=== PATIENT | male | born 1940 | race Caucasian/White ===

== ENCOUNTER → 2020-06-26 | Outpatient (CLI) | payer MEDICARE, BC ==
--- NOTE | 2020-06-26 10:22 | XR ---
"EXAMINATION TYPE: XR chest 2V DATE OF EXAM: 06/26/2020 COMPARISON: CXR from 10/25/2015. HISTORY: Shortness of breath. TECHNIQUE: Frontal and lateral views of the chest are obtained. FINDINGS: There is no focal air space opacity, pleural effusion, or pneumothorax seen. The cardiac silhouette size remains within normal limits. New dual-lead pacemaker. Atherosclerotic thoracic aorta redemonstrated. New 1.9 cm lung nodule projects over the posterior ninth rib warrants follow-up. Pos sible more anterior position on lateral view of the left well-seen. The osseous structures are intact . IMPRESSION: No new acute pulmonary process. New left basilar lung nodule suspected. Follow-up contra st enhanced chest is advised. A Yellow level critical message alert has been initiated for Misha Benjamin MD via the [employer] | Critical Results System on 06/26/2020 10:19 AM. This message alert has been sent to Misha thurston MD via the preferences provided by the clinician for the receipt of Radiology Critical Findings. Message ID [id number]."
--- NOTE | 2020-06-26 10:40 | US ---
"EXAMINATION TYPE: US abdomen complete DATE OF EXAM: 06/26/2020 COMPARISON: NONE CLINICAL HISTORY: R16 R10.13. Pt states loss of appetite, weight loss EXAM MEASUREMENTS: Liver Length: 22.2 cm Gallbladder Wall: 0.2 cm CBD: 0.4 cm Spleen: 12.1 cm Right Kidney: 10.9 x 4.6 x 4.6 cm Left Kidney: 10.5 x 6.3 x 5.8 cm Pancreas: wnl, tail obscured by overlying bowel gas Liver: Enlarged, marked heterogeneity, possible underlying masses. Gallbladder: wnl Evidence for sonographic Dash's sign: No CBD: wnl Spleen: wnl Right Kidney: Cyst medial= 2.4 x 1.6 x 2.4 cm Left Kidney: wnl Upper IVC: wnl Abd Aorta: No evidence of AAA, wall atherosclerosis The visualized liver is enlarged with overall marked heterogeneity. Evaluation for focal masses subop timal due to the heterogeneity. The intrahepatic portion of the IVC and proximal abdominal aorta are within normal limits. There is no evidence of cholelithiasis. Common bile duct is unremarkable. Th e visualized portions of the pancreas are homogenous. The spleen is unremarkable. Kidneys are symme tric and free of hydronephrosis. No renal lesions are seen on images a. IMPRESSION: Hepatomegaly with marked heterogeneity, underlying small masses or metastatic lesions can not be excluded. Follow-up contrast enhanced CT study advised. A Yellow level critical message alert has been initiated for Misha Benjamin MD via the [employer] | Critical Results System on 06/26/2020 10:38 AM. This message alert has been sent to Misha thurston MD via the preferences provided by the clinician for the receipt of Radiology Critical Findings. Message ID [id number]."
== END | disposition home or self-care (01) ==
LOC: RADUSWWP 09:34
PROVIDERS: ATTEND Family Medicine
DX: R10.13 Epigastric pain (principal); R16.0 Hepatomegaly, not elsewhere classified; R06.02 Shortness of breath
CPT/HCPCS: 71046; 76700

== ENCOUNTER → 2020-07-10 | Outpatient (CLI) | payer MEDICARE, BC ==
[2020-07-10 11:32] LABS: African American GFR (CKD) >90 (>60 ml/min/1.73 sqM); Blood Urea Nitrogen 10 mg/dL (9-20); Non-African American GFR(CKD) >90 (>60 ml/min/1.73 sqM)
--- NOTE | 2020-07-10 14:14 | CT ---
EXAMINATION TYPE: CT ChestAbdPelvis w con DATE OF EXAM: 07/10/2020 COMPARISON: None HISTORY: Pulmonary nodule, Hepatomegaly CT DLP: 680.10 mGycm CONTRAST: CT scan of the chest, abdomen and pelvis is performed with Oral Contrast and with IV Contrast, patien t injected with 100 ml mL of Isovue 300. CT Chest: LUNGS: Noted are 15-16 pulmonary nodules identified within each lung field. The largest pulmonary nod ule is seen within the left lower lobe measuring 1.3 cm on the left. The largest right-sided pulmonar y nodule is identified within the right lower lobe and measures 1 cm. There is mild right basilar ple ural thickening. MEDIASTINUM: Thoracic aorta is of normal caliber. The heart is not enlarged. No evidence for media stinal mass or adenopathy. There is evidence of a hiatal hernia. HILAR STRUCTURES: No evidence for mass. No hilar adenopathy is appreciated. OTHER: No significant abnormality. CONTRAST CT ABDOMEN AND PELVIS FINDINGS: LIVER/GB: No calcified gallstones. Innumerable hepatic lesions are seen involving all segments of t he liver. The largest lesion is noted within the medial segment left hepatic lobe and measures approx imately 2.2 cm. There is evidence of hepatomegaly. Biliary tree is of normal caliber. PANCREAS: No inflammation. No distinct mass. SPLEEN: No splenic enlargement. No lesion seen. ADRENALS: No nodule. No thickening. KIDNEYS/BLADDER: No hydronephrosis. No nephrolithiasis. Simple cyst is noted of the right kidney me asuring 2.2 cm. BOWEL: Nodular wall thickening involving the sigmoid colon measuring 1.8 cm. Lesion is difficult to e xclude. Consider direct visualization. Remainder of the small and large bowel are of normal caliber. No evidence for free air or abscess. No inflammatory process. Small amount of free fluid within the p christopher. GENITAL ORGANS: No gross abnormality. LYMPH NODES: No greater than 1cm abdominal or pelvic lymph nodes are appreciated. AORTA: No significant abnormality. OSSEOUS STRUCTURES: Multilevel degenerative changes noted. OTHER: No significant additional abnormality is seen. IMPRESSION: 1. 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 Site of etiology is indetermin ate although there may be a lesion within the sigmoid colon. Consider direct visualization.
== END | disposition home or self-care (01) ==
LOC: RADCTMAIN 10:42
PROVIDERS: ATTEND Family Medicine
DX: R91.1 Solitary pulmonary nodule (principal); R16.0 Hepatomegaly, not elsewhere classified
CPT/HCPCS: 82565; 84520; 71260; 74177; 36415; Q9967

== ENCOUNTER 2020-08-04 08:46 | Day surgery (SDC) | payer MEDICARE, BC ==
[2020-08-04 09:30] VITALS: RESP 16
[2020-08-04 09:31] LABS: Mean Platelet Volume 8.9; Platelet Count 440 k/uL (150-450)
[2020-08-04 09:40] LABS: INR 1.1 (<1.2); Prothrombin Time 11.4 sec (9.0-12.0)
[2020-08-04 11:06] VITALS: TEMP 97.7
[2020-08-04 14:01] VITALS: BP 137/70; PULSE 76
--- NOTE | 2020-08-04 14:08 | US ---
EXAMINATION TYPE: US biopsy liver DATE OF EXAM: 08/04/2020 HISTORY: Liver mass. FINDINGS: Maximal barrier technique was utilized. Hand hygiene achieved with soap and water and alco hol-based hand rub. The skin overlying a suitable path to the patient's mass in the right lobe of ritika er was localized with ultrasound and the overlying skin prepped and draped. Ultrasound was utilized with sterile technique. Lidocaine was used for local anesthesia. A skin peg was made with a scalpe l. An 18-gauge needle was advanced under direct ultrasound guidance and core specimen obtained of th e mass. Single pass made. Specimen submitted in formalin to Pathology. Following the procedure, hem ostasis achieved and the patient is discharged in stable condition without complication. IMPRESSION:STATUS POST ULTRASOUND GUIDED CORE BIOPSY OF left lobe liver MASS, PATHOLOGY IS PENDING. THIS PROCEDURE IS PERFORMED BY THE UNDERSIGNED.
== END 2020-08-04 14:30 | disposition home or self-care (01) ==
LOC: RADPROMAIN 08:46
PROVIDERS: ATTEND Internal Medicine Hematology & Oncology
DX: C78.7 Secondary malignant neoplasm of liver and intrahepatic bile duct (principal); R93.89 Abnormal findings on diagnostic imaging of other specified body structures; C78.00 Secondary malignant neoplasm of unspecified lung; E78.5 Hyperlipidemia, unspecified; I10 Essential (primary) hypertension; Z79.899 Other long term (current) drug therapy; Z98.890 Other specified postprocedural states; Z95.0 Presence of cardiac pacemaker; Z86.19 Personal history of other infectious and parasitic diseases; Z80.1 Family history of malignant neoplasm of trachea, bronchus and lung
CPT/HCPCS: 36415; 47000; 76942; 82947; 85049; 85610; 88307; 88341; 88342